=== PATIENT | female | born 1990 | race Caucasian/White ===

== ENCOUNTER 2018-01-10 21:02 | Emergency (ER) | payer MEDICAID ==
[2018-01-10 22:40] LABS: URINE BLOOD (Dip) POC 2+ (NEGATIVE); URINE GLUCOSE (Dip) POC Negative (NEGATIVE); URINE KETONES (Dip) POC Negative (NEGATIVE); URINE LEUKOCYTE EST (Dip) POC 2+ (NEGATIVE); URINE NITRITE (Dip) POC Negative (NEGATIVE); URINE TOTAL PROTEIN POC 1+ (NEGATIVE)
[2018-01-10 22:40] LABS: URINE PH (Dip) POC 6.5 (5.0-8.5)
== END 2018-01-10 23:29 | disposition home or self-care (01) ==
LOC: FTE 21:02
DX: R30.0 Dysuria (principal)
CPT/HCPCS: 81003; 81025; 99283

== ENCOUNTER 2018-05-29 20:15 | Emergency (ER) | payer MEDICAID | END 2018-05-30 01:38 | disposition home or self-care (01) | LOC: FTE 20:15 | DX: J40 Bronchitis, not specified as acute or chronic (principal) | CPT/HCPCS: 99283; Z7502 ==